=== PATIENT | female | born 2000 | race Caucasian/White ===

== ENCOUNTER 2020-04-15 09:11 | Observation (INO) ==
[2020-04-15] MEDS ORDERED: HYDROcodone/ACETAMIN 5/325 mg TAB PO ONE (13:05)
[2020-04-15 13:47] LABS: ABS Lymphocytes 1.1 10^3/ul (1.0-4.8); ABS Monocytes 0.8 10^3/ul (0-0.8); Eosinophil % 0.5 %; Hematocrit 41 % (35-47); Lymphocyte % 11.9 %; Mean Corpuscular HGB Conc 34 g/dL (31-36); Mean Corpuscular Hemoglobin 30 pg (27-31); Mean Corpuscular Volume 87 fL (80-97); Mean Platelet Volume 9.3 fL (7.4-10.4); Platelet Count 188 10^3/uL (150-450); Red Blood Count 4.71 10^6 /uL (3.70-4.87); Red Cell Distribution Width 12 % (10-15); White Blood Count 8.9 10^3/uL (3.5-10.8)
[2020-04-15 13:59] LABS: Activated Partial Thrombo Time 28.1 seconds (26.0-38.0); INR 1.16 (0.82-1.09)
[2020-04-15 14:04] LABS: Influenza A Molecular Negative (Negative); Influenza B Molecular Negative (Negative)
[2020-04-15 14:07] LABS: ALT 15 U/L (7-52); AST 15 U/L (13-39); Albumin 4.2 g/dL (3.2-5.2); Albumin/Globulin Ratio 1.2 (1-3); Alkaline Phosphatase 83 U/L (34-104); Anion Gap 8 mmol/L (2-11); BUN/Creatinine Ratio 9.7 (8-20); Blood Urea Nitrogen 7 mg/dL (6-24); C Reactive Protein 145.46 mg/L (<8.01); CO2 Carbon Dioxide 27 mmol/L (22-32); Calcium 9.7 mg/dL (8.6-10.3); Chloride 101 mmol/L (101-111); EGFR African American 126.3 (>60); EGFR Non-African American 104.3 (>60); Globulin 3.6 g/dL (2-4); Glucose 100 mg/dL (70-100); Potassium 3.9 mmol/L (3.5-5.0); Sodium 136 mmol/L (135-145); Total Protein 7.8 g/dL (6.4-8.9)
[2020-04-15] MEDS ORDERED: Iohexol 350 (CONTRAST) 500 ML MDV IV ONE (14:17)
[2020-04-15] MEDS ORDERED: Enoxaparin 80 MG/0.8 ML SYR SUBCUT ONE (15:18)
[2020-04-15] MEDS ORDERED: Ondansetron 4 mg VIAL 2 MG/ML 2 ml VIAL IV PRN (15:52)
[2020-04-15] MEDS ORDERED: Al Hydrox/Mg Hydrox/Simet LIQ 30 ML UDC PO PRN (15:52)
[2020-04-15 19:58] LABS: LDH 150 U/L (140-271)
[2020-04-15 20:17] LABS: Ferritin 139.4 ng/mL (11-307)
[2020-04-15] MEDS: HYDROcodone/ACETAMIN 5/325 mg TAB PO PRN (22:42)
[2020-04-15 23:02] LABS: Urine Appearance Clear; Urine Bilirubin Negative (Negative); Urine Blood Negative (Negative); Urine Color Straw; Urine Glucose Negative (Negative); Urine Ketones Negative (Negative); Urine Nitrite Negative (Negative); Urine Protein Negative (Negative); Urine Specific Gravity 1.008 (1.010-1.030); Urine Urobilinogen Negative (Negative)
[2020-04-15 23:10] LABS: Urine Bacteria 1+ (Absent); Urine Red Blood Cell Absent (Absent); Urine Squamous Epithelial Cell Present (Absent); Urine White Blood Cell Trace(0-5/hpf) (Absent)
[2020-04-16] MEDS: HYDROcodone/ACETAMIN 5/325 mg TAB PO PRN ×2 (04:43→09:24)
[2020-04-16] MEDS ORDERED: Enoxaparin 80 MG/0.8 ML SYR SUBCUT SCH (05:00)
[2020-04-16 08:16] LABS: ABS Eosinophils 0.2 10^3/ul (0-0.6); ABS Lymphocytes 1.7 10^3/ul (1.0-4.8); ABS Monocytes 0.9 10^3/ul (0-0.8); ABS Neutrophils 4.6 10^3/ul (1.5-7.7); Eosinophil % 2.4 %; Hematocrit 36 % (35-47); Hemoglobin 12.6 g/dL (12.0-16.0); Lymphocyte % 22.8 %; Mean Corpuscular HGB Conc 35 g/dL (31-36); Mean Corpuscular Hemoglobin 31 pg (27-31); Mean Corpuscular Volume 87 fL (80-97); Mean Platelet Volume 8.7 fL (7.4-10.4); Platelet Count 167 10^3/uL (150-450); Red Blood Count 4.11 10^6 /uL (3.70-4.87); Red Cell Distribution Width 12 % (10-15); White Blood Count 7.3 10^3/uL (3.5-10.8)
[2020-04-16 11:16] VITALS: BP 120/61
[2020-04-16 11:24] LABS: HCG Pregnancy < 0.60 mIU/mL
[2020-04-16] MEDS ORDERED: Polyethylene Glycol 3350 17 GM PACKET PO PRN (11:26)
== END 2020-04-16 13:00 | disposition home or self-care (01) ==
LOC: ED 09:11 → MED 09:11
PROVIDERS: ADMIT Pediatrics; ATTEND Pediatrics